=== PATIENT | female | born 1935 | race Caucasian/White ===

== ENCOUNTER → 2016-07-22 | Outpatient (CLI) | payer OTHER | LOC: MMPC 10:00 | PROVIDERS: ATTEND Podiatrist Foot & Ankle Surgery | DX: M79.674 Pain in right toe(s) (principal); M79.675 Pain in left toe(s); L60.0 Ingrowing nail; B35.1 Tinea unguium; I73.9 Peripheral vascular disease, unspecified; G62.9 Polyneuropathy, unspecified; G30.1 Alzheimer's disease with late onset | CPT/HCPCS: 11720 ×2; G0463 ==